=== PATIENT | male | born 1995 | race Two or more races ===

== ENCOUNTER 2020-04-22 12:32 | Emergency (ER) | payer SELFPAY ==
[~2020-04-22] VITALS: Ht 170.2 cm; Wt 76.2 kg
[2020-04-22 12:32] VITALS: BP 133/91
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
[2020-04-22] MEDS ORDERED: propofoL 1,000mg/100ml 0 ML IV ONE (13:05)
--- NOTE | 2020-04-22 13:11 | NUR ---
ED Nurse Note: Xray at bedside.
[2020-04-22 13:20] VITALS: BP 126/75
--- NOTE | 2020-04-22 13:20 | NUR ---
ED Nurse Note: 10ml profolol given by ERMD.
--- NOTE | 2020-04-22 13:37 | NUR ---
ED Nurse Note: Xray done at bedside.
[2020-04-22] MEDS ORDERED: IBUPROFEN600 M1 ORAL (13:51)
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
[2020-04-22 14:55] VITALS: BP 131/74
--- NOTE | 2020-04-22 14:55 | NUR ---
ED Nurse Note: Pt cleared by ERMD for discharge. DC instructions/prescription was given and explained to pt and verbalized understanding of teachings. All medical deviecs such as ID band and IV line removed. Pt is AAO x4, ambulatory and left with all personal belongings. Pt was picked up by his .
--- NOTE | 2020-04-22 15:39 | Diagnostic Imaging Report ---
Indication: Pain, trauma Technique: 3 views of the left shoulder Comparison: none Findings: There is anterior dislocation of the left humeral head. No fracture demonstrated. Impression: Positive for anterior left shoulder dislocation. This was apparently recognized by the ER physician as there is a subsequent post reduction film available
--- NOTE | 2020-04-22 15:44 | Diagnostic Imaging Report ---
Indication: Post reduction of shoulder dislocation Technique: 2 views of the left shoulder Comparison: 20 minutes earlier Findings: Reduction of previously demonstrated left shoulder anterior dislocation. Bony alignment. No evidence of underlying fracture Impression: Evidence of successful reduction of left shoulder dislocation
== END 2020-04-22 14:55 | disposition home or self-care (01) ==
LOC: EDBD 12:32 → EMR 12:49
DX: S43.005A Unspecified dislocation of left shoulder joint, initial encounter (principal); X58.XXXA Exposure to other specified factors, initial encounter; Y92.9 Unspecified place or not applicable
CPT/HCPCS: 23650; 73030; 96374; 99284; J2704